=== PATIENT | male | born 1950 | race Caucasian/White ===

== ENCOUNTER 2019-10-04 21:20 | Inpatient (IN) | payer MEDICARE, BC ==
[~2019-10-04] VITALS: Ht 167.6 cm; Wt 88.9 kg
--- NOTE | 2019-10-04 21:48 | NUR ---
RECEIVED CALL FROM PT WOUND CARE DR. RAMIREZ AT [facility]. DOCTOR ADVISED TO PLEASE DO NOT REMOVE BANDAGES ON PT FOOT THEY CONTAIN MEDICAL MAGGOTS TO HEAL WOUNDS ON FEET. DR. RAMIREZ PHONE:
--- NOTE | 2019-10-04 21:48 | NUR ---
More brown in [place] - 10/04/19 at 2148 by KEVIN RECEIVED CALL FROM PT WOUND CARE DOCTOR AT [facility]
--- NOTE | 2019-10-04 21:49 | NUR ---
GILLIAN (DAUGHTER) CONTACT INFORMATION: [phone]
--- NOTE | 2019-10-04 21:55 | NUR ---
RICKY FROM HOME TO ER BED 7. AAOX2. BREATHING RAPID AND SHALLOW. NOTED 02 SAT @ 92% ON RA. BROUGHT IN FOR LEATHARGY AND WEAKNESS SATRTED TODAY. NO NUERO DEFICIT NOTED. PER DAUGHTER OVER THE PHONE, PT WAS BASELINE TALKING AND WALKING. PT HAD A RECENT AMPUTATION OF TOES, UNABLE TO ASSESS AT THIS TIME D/T WOUND MD CALLED AND GAVE INSTRUCTIONS NOT TO REMOVE OR CHANGE DRESSING. PT IS CURRENTLY ON MAGGOT TX. MD MADE AWARE. IV LINE IS ALREADY PLACED BY EMS MARINE ENGINEERING TECHNICIANS, 18G L AC. BLOOD DRAWN AND GIVEN TO GARMENT PATTERNMAKER. PT IS PLACED ON MONITOR. WILL CONTINUE TO MONITOR
[2019-10-04 21:59] LABS: BASOPHILS # (AUTO) 0.1 /CMM (0.0-0.2); BASOPHILS % (AUTO) 0.5 % (0.0-2.0); EOSINOPHILS % (AUTO) 0.3 % (0.0-6.0); HEMATOCRIT 28 % (39-51); HEMOGLOBIN 8.8 g/dL (13.5-17.5); LYMPHOCYTES # (AUTO) 0.2 /CMM (0.8-4.8); LYMPHOCYTES % (AUTO) 1.1 % (20.0-44.0); MEAN CORPUSCULAR HGB CONC 31 g/dl (31.0-36.0); MEAN CORPUSCULAR VOLUME 73 fL (80-96); MONOCYTES # (AUTO) 0.3 /CMM (0.1-1.30); MONOCYTES % (AUTO) 1.5 % (2.0-12.0); NEUTROPHILS # (AUTO) 18.1 /CMM (1.8-8.9); NEUTROPHILS % (AUTO) 96.6 % (43.0-81.0); PLATELET COUNT (AUTO) 220 /CMM (150-450); RED BLOOD CELL COUNT(AUTO) 3.88 MIL/uL (4.5-6.0); WHITE BLOOD COUNT (AUTO) 18.7 K/uL (4.3-11.0)
[2019-10-04] MEDS ORDERED: ACETAMINOPHEN ES 500 MG TABLET PO ONE (22:00)
[2019-10-04] MEDS ORDERED: IV NS 0.9% 1,000 ML BAG IV ONE ×2 (22:00→23:30)
[2019-10-04] MEDS ORDERED: ACETAMINOPHEN ES 500 MG TABLET ONE (22:01)
[2019-10-04] MEDS ORDERED: LISI40TA4 PO (22:03)
[2019-10-04] MEDS ORDERED: METF-442 PO (22:03)
[2019-10-04] MEDS ORDERED: DULA0.75 SQ (22:03)
[2019-10-04] MEDS ORDERED: INSU100V11 SQ (22:03)
[2019-10-04] MEDS ORDERED: CARV12.52 PO (22:03)
[2019-10-04] MEDS ORDERED: FURO40TA5 PO (22:03)
[2019-10-04] MEDS ORDERED: AMIO200T4 PO (22:03)
[2019-10-04] MEDS ORDERED: FURO-144 PO (22:03)
[2019-10-04] MEDS ORDERED: SIMV-46 PO (22:03)
[2019-10-04] MEDS ORDERED: AMLO5TAB9 PO (22:03)
[2019-10-04] MEDS ORDERED: RIVA10TA PO (22:03)
[2019-10-04 22:11] LABS: CALCIUM, SERUM 8.2 mg/dL (8.5-10.1); CARBON DIOXIDE 24 mmol/L (21-32); CHLORIDE 97 mmol/L (98-107); CREATININE 1.9 mg/dL (0.6-1.3); GLUCOSE 154 mg/dL (74-106); POTASSIUM 3.5 mmol/L (3.5-5.1); SODIUM SERUM 133 mmol/L (136-145); UREA NITROGEN, BLOOD 55 mg/dL (7-18)
--- NOTE | 2019-10-04 22:13 | NUR ---
URINE COLLECTED AND SENT TO LAB
[2019-10-04 22:18] LABS: ALANINE AMINOTRANSFERASE 589 U/L (12-78); ALBUMIN 2.4 g/dL (3.4-5.0); ALKALINE PHOSPHATASE 114 U/L (46-116); ASPARTATE AMINOTRANSFERASE 230 U/L (15-37); BILIRUBIN,DIRECT 0.3 mg/dL (0.0-0.2); TOTAL PROTEIN, SERUM 6.6 g/dL (6.4-8.2)
[2019-10-04 22:35] LABS: APPEARANCE,URINE Clear (CLEAR); BILIRUBIN,URINE SMALL (NEGATIVE); BLOOD, URINE Negative Ery/uL (NEGATIVE); COLOR,URINE Yellow (YELLOW); KETONES,URINE Trace (NEGATIVE); LEUKOCYTE ESTERASE ,URINE Negative (NEGATIVE); NITRITE, URINE Negative (NEGATIVE); PH,URINE 5.5 (5.0-8.0); PROTEIN,URINE Trace mg/dl (NEGATIVE); UGLUCOSE Negative (NEGATIVE); UROBILINOGEN,URINE 0.2 EU/dL (0.2)
[2019-10-04 22:37] LABS: BACTERIA,URINE Few /HPF (None Seen); RBC,URINE NONE SEEN /HPF (0-2); SQUAMOUS EPITHELIAL CELL,UR Few /HPF (None Seen); WBC,URINE NONE SEEN /HPF (0-3)
[2019-10-04 22:59] LABS: LYMPHOCYTES % (MANUAL) 1 % (16-48); MONOCYTES % (MANUAL) 1 % (0-11.0); NEUTROPHILS % (MANUAL) 98 (42-76)
[2019-10-04 23:04] LABS: CREATINE KINASE, TOTAL 112 U/L (39-308); FERRITIN 478 ng/mL (8-388)
--- NOTE | 2019-10-04 23:10 | NUR ---
REPORT GIVEN TO SCOT HOROWITZ FOR PARAG.
--- NOTE | 2019-10-04 23:21 | NUR ---
Received report from SCOT Tan.
[2019-10-04] MEDS ORDERED: VANCOMYCIN 1 GM in IV D5W 250 ML IV ONE (23:30)
[2019-10-04] MEDS ORDERED: PIPERACILLIN /TAZOBACTAM 3.375 G in IV D5W 50 ML IV ONE (23:30)
[2019-10-04] MEDS ORDERED: VANCOMYCIN 1 GM VIAL ONE (23:47)
[2019-10-04] MEDS ORDERED: PIPERACILLIN /TAZOBACTAM 3.375 G VIAL IV ONE (23:47)
--- NOTE | 2019-10-04 23:48 | NUR ---
PT TRANSPORTED TO UNIT ON GURNEY WITH EMT AND RN AT BEDSIDE S/ ACLS PROTOCOL. NAD NOTED DURINGH TRANSPORT
--- NOTE | 2019-10-04 23:50 | NUR ---
RN OPENING NOTE/ADMISSION NOTE: Pt transferred to unit via gurney accompanied by SLIP LASTER and tech. Transferred to bed, skin check done, head to toe assessment done. Pt A&Ox3, primarily Italian speaking, little Uzbek. On isolation for R/o Coivd. On 2L/min NC tolerating well. No SOB noted. On tele monitor showing a-fib. IV sites on RAC #18 and LAC#18 patent ad flushing. Dressings c/d/i. 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 Per SLIP LASTER, Dr. Johnston from [facility] called and stated to not remove bandages on pt's feet as they contain medical maggots to heal the wounds. Stated she will come by and give orders for tx. VS: T 98.0, HR 82, RR 18, O2 100%. BP 86/42. Dr. Brian Zuñiga aware pt has been admitted. Awaiting orders. Safety measures in place. Will continue to monitor.
[2019-10-05] VITALS (54 sets, daily range): BP systolic 75–166; BP diastolic 22–100
[2019-10-05] MEDS ORDERED: IV NS 0.9% 1,000 ML IV PRN (00:52)
[2019-10-05] MEDS ORDERED: ACETAMINOPHEN 325 MG TABLET PO PRN (01:00)
[2019-10-05] MEDS ORDERED: Z GUARD REMEDY 2 OZ OINT TP PRN (01:00)
[2019-10-05] MEDS ORDERED: MEROPENEM 500 MG in IV NS 0.9% 50 ML IV SCH (01:00)
[2019-10-05] MEDS ORDERED: ONDANSETRON HCL/PF 4 MG/2 ML VIAL IVP PRN (01:00)
[2019-10-05] MEDS ORDERED: ENOXAPARIN SODIUM 40 MG/0.4 ML DISP.SYRIN SQ SCH (01:00)
--- NOTE | 2019-10-05 01:10 | NUR ---
RN NOTE: Pt's BP noted at 86/42 s/p 2.5L NS bolus from the ER. Paged Dr. Brian Zuñiga and rec'd order for 500mL NS bolus. Orders noted and carried out.
[2019-10-05] MEDS ORDERED: IV NS 0.9% 500 ML IV ONE ×2 (01:30→03:30)
[2019-10-05] MEDS ORDERED: DEXTROSE 50%-WATER 50 ML DISP.SYRIN IV PRN (01:30)
[2019-10-05] MEDS ORDERED: MEROPENEM 500 MG in IV NS 0.9% 50 ML IV ONE (01:30)
[2019-10-05] MEDS ORDERED: MEROPENEM 500 MG VIAL IV ONE (01:46)
--- NOTE | 2019-10-05 03:06 | NUR ---
RN NOTE: Pt's BP s/p 500mL bolus at 79/47. Dr. Zuñiga paged and aware. Rec'd orders for another 500mL NS bolus and Midodrine 10mg PO x1. Orders noted and carried out.
[2019-10-05] MEDS ORDERED: MIDODRINE HCL (5MG) 5 MG TABLET PO ONE (03:30)
--- NOTE | 2019-10-05 04:58 | NUR ---
RN NOTE: After 500NS bolus and Midodrine, pt's BP at 77/31. Dr. Zuñiga aware, gave orders to transfer to ICU and start levophed. Charge nurse aware.
--- NOTE | 2019-10-05 05:44 | NUR ---
RN/ICU- RECEIVED PT. FROM TELE1 BY BED ACCOMPANIED BY TD D CREW PER ACLS PROTOCOL. NURSING FOCUS : HYPOTENSION R/T DIAGNOSIS WOUND INFECTION, SEPSIS. ROUTINE ICU CARE INITIATED.BP-76/45, HR-77 ATRIAL FIBRILLATION. BREATHING COMES EASY W/ O2 SUPPORT OF 2L/NC, SATS.-98%. AFEBRILE. ON CONTACT AND DROPLET PRECAUTIONS FOR R/O COVID 19.. W/ WOUNDS ON BOTH FEET INTACT W/ OCCLUSIVE DRESSING. PT. IS A FULL CODE. DENIES PAIN AT THIS MOMENT.
--- NOTE | 2019-10-05 05:51 | NUR ---
RN NOTE: Report given to Stephenie in ICU and pt transferred via ACLS protocol.
--- NOTE | 2019-10-05 05:55 | NUR ---
RN/ICU-SPOKE TO DAUGHTER BY PHONE REGARDING PT. STATUS, PT. ALSO SPOKE TO DAUGHTER BY PHONE. BOTH VERBALIZED UNDERSTANDING. EXPLAINED THE NEED FOR PICC LINE. VERBALIZED UNDERSTANDING. PT. THUS. GIVING VERBAL CONSENT. WILL GET ORDER FROM Mariangel MONTEIRO DNP.
[2019-10-05] MEDS ORDERED: NOREPINEPHRINE 4 MG/4 ML AMPUL IV ONE (06:00)
[2019-10-05] MEDS: NOREPINEPHRINE 8 MG in IV NS 0.9% 242 ML IV PRN ×2 (06:11→09:54)
--- NOTE | 2019-10-05 06:11 | NUR ---
RN/ICU- BP-83/50. LEVOPHED DRIP STARTED AT 0.1 MCG/KG/MIN. WILL TITRATE PER PROTOCOL TO KEEP SBP>90.
--- NOTE | 2019-10-05 06:45 | NUR ---
RN/ICU- SPOKE TO [facility] CARE RN REGARDING PT. WOUNDS QUENTIN. FEET AND CURRENT DRESSING AND TREATMENT FROM [facility]. WILL NOT UNWRAP CURRENT DRESSINGS AT THIS TIME. QUENTIN. FEET DRESSINGS INTACT W/ OCCLUSIVE DRESSINGS, W/ KERLIX WRAP IN PLACE. BOTH FEET KEPT ELEVATED ON PILLOWS.
[2019-10-05] MEDS: BLOOD SUGAR DIAGNOSTIC 1 EACH STRIP IN SCH ×4 (07:44→22:33)
--- NOTE | 2019-10-05 07:45 | NUR ---
ICU/RN: Pt received, pleasant, A&Ox3 with periods of confusion. Neosynephrine infusing well. Pending PICC line placement.
[2019-10-05] MEDS ORDERED: FEE PK DOSING 1 MIN EA MC ONE (07:50)
[2019-10-05] MEDS ORDERED: POTASSIUM CHLORIDE 20 MEQ TAB.PRT.SR PO SCH (08:00)
[2019-10-05 08:18] LABS: BASOPHILS # (AUTO) 0.1 /CMM (0.0-0.2); BASOPHILS % (AUTO) 0.4 % (0.0-2.0); HEMATOCRIT 31 % (39-51); HEMOGLOBIN 9.3 g/dL (13.5-17.5); LYMPHOCYTES # (AUTO) 0.7 /CMM (0.8-4.8); LYMPHOCYTES % (AUTO) 2.6 % (20.0-44.0); MEAN CORPUSCULAR HGB CONC 30 g/dl (31.0-36.0); MEAN CORPUSCULAR VOLUME 75 fL (80-96); MONOCYTES # (AUTO) 1.8 /CMM (0.1-1.30); NEUTROPHILS # (AUTO) 22.9 /CMM (1.8-8.9); PLATELET COUNT (AUTO) 258 /CMM (150-450); WHITE BLOOD COUNT (AUTO) 25.4 K/uL (4.3-11.0)
[2019-10-05 08:32] LABS: CALCIUM, SERUM 7.4 mg/dL (8.5-10.1); POTASSIUM 3.7 mmol/L (3.5-5.1)
[2019-10-05 08:48] LABS: MAGNESIUM 2.1 mg/dL (1.8-2.4)
[2019-10-05 08:55] LABS: THYROID STIMULATING HORMONE 1.869 uIU/mL (0.358-3.74)
[2019-10-05] MEDS ORDERED: FUROSEMIDE 40 MG TABLET PO SCH ×2 (09:00)
[2019-10-05] MEDS ORDERED: CARVEDILOL 12.5 MG TABLET PO SCH (09:00)
[2019-10-05] MEDS ORDERED: AMLODIPINE BESYLATE 5 MG TABLET PO SCH (09:00)
[2019-10-05] MEDS ORDERED: AMIODARONE HCL 200 MG TABLET PO SCH (09:00)
--- NOTE | 2019-10-05 09:30 | NUR ---
ICU/RN: Dr Quintero at bedside, updated on pt status.
[2019-10-05] MEDS: IV NS 0.9% 1,000 ML IV PRN ×2 (09:46→18:51)
--- NOTE | 2019-10-05 09:57 | NUR ---
COAL TRIMMER COAL TRIMMER SPOKE TO DR RAMIREZ REGARDING WOUND CARE TREATMENT. PER DR RAMIREZ, DR ZHANG WILL SEE THIS PT TODAY AND WILL PLACE TREATMENT ORDERS ONCE SHE SEES THIS PATIENT. FOR NOW, NURSING TO LEAVE CURRENTLY DRESSINGS IN PLACE, DR ZHANG TO CHANGE DRESSINGS. ALL DISCUSSED WITH PRIMARY NURSE.
[2019-10-05] MEDS: INSULIN REGULAR, HUMAN 100 UNIT/ML 3 ML VIAL SQ PRN ×3 (11:45→22:36)
--- NOTE | 2019-10-05 13:00 | NUR ---
ICU/RN:S/P Debridement Pt tolerated medical maggot removal and L foot debridement performed by Dr Reyes. Consents were obtained beforehand and pt verbalized understanding of procedure. Pt tolerated procedure well, no s/s bleeding noted, dressing C/D/I. Wounds photographed by MD and placed in chart.
[2019-10-05] MEDS: MEROPENEM 1 G in IV NS 0.9% 100 ML IV SCH (13:25)
[2019-10-05] MEDS: NOREPINEPHRINE 32 MG in IV NS 0.9% 218 ML IV PRN (13:28)
[2019-10-05] MEDS ORDERED: CELLULOSE,OXIDIZED 1 PKT EACH MC STA (14:10)
--- NOTE | 2019-10-05 14:30 | NUR ---
ICU/RN: S/P PICC Line insertion. CXR pending. Pt on xarelto and has bleeding at puncture site. Pressure dressing applied, continuous oozing noted. Dr Gallagher notified with orders for Surgicel. Central line care rendered. Dr Gallagher also notified that pt is PUI for covid, is not on any treatments, awaiting ID consult. made aware of poor urine output.
[2019-10-05] MEDS ORDERED: RIVAROXABAN 10 MG TABLET PO SCH (17:00)
--- NOTE | 2019-10-05 17:00 | NUR ---
ICU/RN: Called Rx regarding 1700 Xarelto dose, awaiting delivery.
--- NOTE | 2019-10-05 17:45 | NUR ---
ICU/RN:ID Consult Yadira San NP rounds. Updated on pt status, labs and cultures reviewed. Patient with gram positive cocci, currently on vancomycin.
[2019-10-05] MEDS ORDERED: SIMVASTATIN 20 MG TABLET PO SCH (18:00)
--- NOTE | 2019-10-05 18:00 | NUR ---
ICU/RN: Called Rx regarding Xarelto dose, spoke with Brian, Rx; awaiting delivery.
--- NOTE | 2019-10-05 19:21 | NUR ---
ICU/RN: Bedside report given to oncoming RN. Still awaiting Xarelto delivery.
--- NOTE | 2019-10-05 19:40 | NUR ---
RN OPENING NOTE, Pt A&Ox3, breathing even and unlabored, no sob/acute distress noted at this time, at RA, afib in tele monitor with hr 80s-90s at this time, On isolation for R/o Covid. IV sites LAC#18, and s/p BARRERA picc line today, both patent and intact, all need provided, sbp in 90s at this time, on Levophed 6mcg/kg/min and 0.9% NS @ 125ml/hr, no infiltration noted, slightly bleeding at picc line site noted, reinforced dressing, bed locked and low position, 2x s/r of bed up, amy light w/i reach, will continue to monitor closely.
--- NOTE | 2019-10-05 20:35 | NUR ---
RN NOTES, INFORMED CHLOE KRAUSE THAT THERE'S AN ORDER FOR XARELTO 2OMG FOR PATIENT SINCE 5PM AND PATIENT SLIGHTLY BLEEDING FROM PICC LINE SITE SINCE THEY INSERTED TODAY, PER CHLOE GIVE MEDICATION IF IS NOT PROFUSE BLEEDING, NOTED AND CARRIED OUT.
[2019-10-05] MEDS: VANCOMYCIN 1 GM in IV D5W 250 ML IV SCH (22:36)
[2019-10-06] VITALS (53 sets, daily range): BP systolic 89–142; BP diastolic 39–99
[2019-10-06] MEDS: NOREPINEPHRINE 32 MG in IV NS 0.9% 218 ML IV PRN (00:13)
--- NOTE | 2019-10-06 00:20 | NUR ---
RN NOTES, INFORMED CHLOE FUNERAL SERVICE LICENSEE THAT PATIENT IS COMPLAINING OF SEVERE PAIN IN BOTH LEGS, PATIENT S/P DEBRIDEMENT TODAY, AND SHE REPLIED WITH NEW ORDER FOR MORPHINE, NOTED AND CARRIED OUT, WILL ADMINISTER ORDERED,
[2019-10-06] MEDS: MORPHINE SULFATE INJ 2 MG/ML DISP.SYRIN IV PRN ×3 (00:25→15:24)
[2019-10-06] MEDS: MEROPENEM 1 G in IV NS 0.9% 100 ML IV SCH ×2 (01:56→13:58)
[2019-10-06 04:47] LABS: BASOPHILS # (AUTO) 0.1 /CMM (0.0-0.2); BASOPHILS % (AUTO) 0.2 % (0.0-2.0); EOSINOPHILS % (AUTO) 0.2 % (0.0-6.0); HEMATOCRIT 28 % (39-51); HEMOGLOBIN 8.8 g/dL (13.5-17.5); LYMPHOCYTES # (AUTO) 0.9 /CMM (0.8-4.8); LYMPHOCYTES % (AUTO) 3.8 % (20.0-44.0); MEAN CORPUSCULAR HGB CONC 31 g/dl (31.0-36.0); MEAN CORPUSCULAR VOLUME 73 fL (80-96); MONOCYTES # (AUTO) 1.5 /CMM (0.1-1.30); NEUTROPHILS # (AUTO) 22.1 /CMM (1.8-8.9); NEUTROPHILS % (AUTO) 89.8 % (43.0-81.0); PLATELET COUNT (AUTO) 267 /CMM (150-450); RED BLOOD CELL COUNT(AUTO) 3.88 MIL/uL (4.5-6.0); WHITE BLOOD COUNT (AUTO) 24.7 K/uL (4.3-11.0)
[2019-10-06 04:49] LABS: APPEARANCE,URINE CLEAR (CLEAR); BILIRUBIN,URINE SMALL (NEGATIVE); BLOOD, URINE NEGATIVE Ery/uL (NEGATIVE); COLOR,URINE YELLOW (YELLOW); KETONES,URINE NEGATIVE (NEGATIVE); LEUKOCYTE ESTERASE ,URINE NEGATIVE (NEGATIVE); NITRITE, URINE NEGATIVE (NEGATIVE); PH,URINE 5.5 (5.0-8.0); PROTEIN,URINE TRACE mg/dl (NEGATIVE); UGLUCOSE NEGATIVE (NEGATIVE)
[2019-10-06 04:58] LABS: BACTERIA,URINE Few /HPF (None Seen); RBC,URINE 0-2 /HPF (0-2); SQUAMOUS EPITHELIAL CELL,UR Few /HPF (None Seen)
[2019-10-06 05:00] LABS: CREATININE, URINE 129.2 MG/DL (30.0-125.0); URINE TOTAL PROTEIN 69.1 mg/dL (0-11.9)
[2019-10-06 05:03] LABS: ALBUMIN 2.1 g/dL (3.4-5.0); BILIRUBIN,TOTAL 0.9 mg/dL (0.2-1.0); CALCIUM, SERUM 7.8 mg/dL (8.5-10.1); CREATININE 2.1 mg/dL (0.6-1.3); PHOSPHORUS 3.3 mg/dL (2.5-4.9); POTASSIUM 3.6 mmol/L (3.5-5.1); THYROID STIMULATING HORMONE 1.985 uIU/mL (0.358-3.74)
[2019-10-06 05:26] LABS: EOSINOPHIL,URINE None Seen
[2019-10-06] MEDS: IV NS 0.9% 1,000 ML IV PRN (05:37)
--- NOTE | 2019-10-06 06:40 | NUR ---
RN OPENING NOTE, Patient in bed breathing even and unlabored, no sob/acute distress noted at this time, at RA, continue afib in tele monitor with hr 90s at this time, On isolation for R/o Covid, no result yet, IV sites LAC#18, and s/p BARRERA picc line, both patent and intact, all need provided, on Levophed titrate down during night to 0.3mcg/kg/min and 0.9% NS @ 125ml/hr, no infiltration noted, bed locked and low position, 2x s/r of bed up, amy light w/i reach, will endorse continuity of care to oncoming nurse.
[2019-10-06 06:43] LABS: FERRITIN 561 ng/mL (8-388)
--- NOTE | 2019-10-06 07:30 | NUR ---
PURCHASING ADMINISTRATOR INITIAL NOTE RECEIVED PATIENT AWAKE, A/OX3, ABLE TO MAKE NEEDS KNOWN. DENIES SOB. ON ROOM AIR. C/O LEFT FOOT PAIN WITH MOVEMENT 01/23. NO DISTRESS NOTED. ON TELE MONITOR AFIB CONTROLLED. BARRERA PICC LINE DRESSING PATENT AND INTACT, IVF RUNNING. TURNED LEVO OFF. IOSLATION PRECAUTIONS OBSERVED. WILL CONTINUE TO MONITOR.
[2019-10-06] MEDS: BLOOD SUGAR DIAGNOSTIC 1 EACH STRIP IN SCH ×4 (08:10→21:42)
[2019-10-06] MEDS: INSULIN REGULAR, HUMAN 100 UNIT/ML 3 ML VIAL SQ PRN ×4 (08:12→21:44)
[2019-10-06] MEDS ORDERED: POTASSIUM CHLORIDE 20 MEQ TAB.PRT.SR PO SCH ×2 (09:00→12:11)
[2019-10-06] MEDS: HYDROCORTISONE SOD SUCCINATE 100 MG/2 ML VIAL IV SCH ×3 (12:20→17:33)
--- NOTE | 2019-10-06 13:00 | NUR ---
SUPPLIES PACKER NOTE SEEN AND EXAMINED BY DR SCHROEDER WITH ORDERS TO TRANSFER PATIENT TO TELEMETRY, CHARGE NURSE AWARE.
[2019-10-06] MEDS: SOD FERRIC GLUC 125 MG in IV NS 0.9% 100 ML IV SCH (14:17)
[2019-10-06] MEDS ORDERED: RIVAROXABAN 10 MG TABLET PO SCH (17:00)
--- NOTE | 2019-10-06 17:00 | NUR ---
[facility] TECHNICIAN NOTE RECEIVED CALL FROM [facility], WITH TELEPHONE ORDERS FOR DOPPLER ARTERIAL OF BILATERAL LEGS FOR BIPASS GRAFT SURVEILLANCE. NOTED AND CARRIED OUT.
--- NOTE | 2019-10-06 17:20 | NUR ---
NEWS PRODUCTION SUPERVISOR NOTE BEDSIDE REPORT GIVEN TO JACI FROM 3W, PATIENT TO GO TO ROOM 314-2, PATIENT TAKE VIA BED. PATIENT TAKEN VIA BED. Addendum: 10/06/19 at 1743 by NICOLE AGUILAR RN WRONG ROOM. PATIENT TO ROOM 313-1
--- NOTE | 2019-10-06 17:25 | NUR ---
WRONG ADDRESS CLERK NOTES MRSA NARES RESULTED POSITIVE RELAYED TO DR KELY ALDRIDGE WITH ORDERS FOR BACTROBAN, ORDERS CLARIFIED AND READ BACK, NOTED AND CARRIED OUT.
--- NOTE | 2019-10-06 17:25 | NUR ---
MANAGER ENGLISH NOTES RECEIVED PATIENT FROM ICU REPORT GIVEN BY [facility] RN. PATIENT ALERT ORIENTED X 3. NO ACUTE DISTRESS NOTED. DENIED PAIN AT THIS TIME. VITAL SIGNS STABLE. PLACED ON GOGGLES ASSEMBLER SINUS RHYTHM. SAFETY MEASURES IN PLACE, CALL LIGHT WITHIN REACH. WILL CONTINUE TO MONITOR ACCORDINGLY.
--- NOTE | 2019-10-06 18:05 | NUR ---
director nicu note spoke with daughter Agnes and updates given as well as room change.
--- NOTE | 2019-10-06 19:00 | NUR ---
COMIC BOOK WRITER NOTES PATIENT IN BED ALERT ORIENTED X 3. NO ACUTE DISTRESS NOTED. NO ACUTE DISTRESS NOTED . BREATHING UNLABORED. NO SOB NOTED. SAFETY MEASURES IN PLACE, CALL LIGHT WITHIN REACH. WILL ENDORSE TO NIGHT NURSE FOR CONTINUITY OF CARE.
--- NOTE | 2019-10-06 19:30 | NUR ---
LABORER PRESTRESSED CONCRETE OPENING NOTES RECEIVED PATIENT IN BED, ALERT AND ORIENTED X 3. BREATHING REGULAR AND UNLABORED ON ROOM AIR. RIGHT UPPER ARM PICC LINE INTACT AND PATENT, FLUSHING WELL WITH NO BLEEDING OR S/S OF INFILTRATION NOTED. ON LICSW WITH ATRIAL FIBRILLATION AT 72bpm. DENIES SUICIDAL IDEATION. NO COMPLAINTS OF PAIN/DISCOMFORT REPORTED AT THIS TIME. BED LOW AND LOCKED ON SEMI FOWLERS POSITION. CALL LIGHT IN REACH. WILL CONTINUE TO MONITOR.
--- NOTE | 2019-10-06 20:54 | NUR ---
PRELIMINARY ECHO FINDINGS SHOWED EF 25-30%~. RN WAS ADVISED OF INITIAL RESULTS.
[2019-10-06] MEDS: MUPIROCIN OINT 2% 22 GM TUBE SCH (21:11)
--- NOTE | 2019-10-06 22:00 | NUR ---
DIELECTRIC PRESS OPERATOR NOTES BS 276mg/dl, 6UNITS REGULAR INSULIN GIVEN SQ. SNACKS PROVIDED ON BEDSIDE. WILL CONTINUE TO MONITOR.
[2019-10-06] MEDS: VANCOMYCIN 1 GM in IV D5W 250 ML IV SCH (23:08)
[2019-10-07] VITALS: BP 109/60
[2019-10-07] MEDS: MEROPENEM 1 G in IV NS 0.9% 100 ML IV SCH ×2 (01:03→13:20)
[2019-10-07] MEDS: MORPHINE SULFATE INJ 2 MG/ML DISP.SYRIN IV PRN ×2 (03:52→21:17)
[2019-10-07 04:00] VITALS: BP 105/60
--- NOTE | 2019-10-07 04:00 | NUR ---
LUGGAGE LINER NOTES COMPLAINED OF 8/10 LEFT FOOT PAIN, MORPHINE 2MG GIVEN VIA IV PUSH. NON-PHARMACOLOGICAL INTERVENTIONS PROVIDED. VITAL SIGNS WNL. WILL CONTINUE TO MONITOR.
[2019-10-07] MEDS: BLOOD SUGAR DIAGNOSTIC 1 EACH STRIP IN SCH ×4 (06:36→21:05)
[2019-10-07] MEDS: INSULIN REGULAR, HUMAN 100 UNIT/ML 3 ML VIAL SQ PRN ×4 (06:38→21:16)
[2019-10-07 06:44] LABS: BASOPHILS # (AUTO) 0.1 /CMM (0.0-0.2); BASOPHILS % (AUTO) 0.2 % (0.0-2.0); HEMATOCRIT 32 % (39-51); HEMOGLOBIN 9.9 g/dL (13.5-17.5); LYMPHOCYTES # (AUTO) 0.9 /CMM (0.8-4.8); LYMPHOCYTES % (AUTO) 2.8 % (20.0-44.0); MEAN CORPUSCULAR HGB CONC 31 g/dl (31.0-36.0); MEAN CORPUSCULAR VOLUME 72 fL (80-96); MONOCYTES % (AUTO) 3.1 % (2.0-12.0); NEUTROPHILS % (AUTO) 93.9 % (43.0-81.0); PLATELET COUNT (AUTO) 298 /CMM (150-450); RED BLOOD CELL COUNT(AUTO) 4.42 MIL/uL (4.5-6.0)
[2019-10-07 06:52] LABS: WHITE BLOOD COUNT (AUTO) 33.1 K/uL (4.3-11.0)
--- NOTE | 2019-10-07 06:55 | NUR ---
MACHINE JOINER CEMENTER CLOSING NOTES PATIENT IN BED, ALERT AND ORIENTED X 3. BREATHING REGULAR AND UNLABORED ON ROOM AIR. RIGHT UPPER ARM PICC LINE PATENT AND FLUSHING WELL. MAINTAINED ON ADMINISTRATIVE ACCOUNTANT WITH ATRIAL FIBRILLATION AT 78bpm. WOUND TREATMENTS PROVIDED. NO COMPLAINTS OF PAIN/DISCOMFORT REPORTED AT THIS TIME. BED LOW AND LOCKED ON SEMI FOWLERS POSITION. CALL LIGHT IN REACH. WILL ENDORSE TO MORNING SHIFT FOR PARAG.
[2019-10-07 07:07] LABS: PTH, INTACT 59 pg/mL (15-65)
--- NOTE | 2019-10-07 07:30 | NUR ---
MS/RN Opening note Received patient in bed, AO x 4, compliance and able to responds all stimuli. Noticed WBC CH/33.1 Dr. Elliott rivera. pt does no c/o pain or any discomfort, skin is warm to touch, kept clean/dry, intact IV site. Respiratory even and unlabored in room air. Keep lower position of the bed with locked wheel fro safety. Call light within reach. Will continue to monitor.
[2019-10-07 07:35] LABS: CALCIUM, SERUM 7.9 mg/dL (8.5-10.1); CREATININE 1.6 mg/dL (0.6-1.3); MAGNESIUM 2.2 mg/dL (1.8-2.4); PHOSPHORUS 2.8 mg/dL (2.5-4.9)
[2019-10-07 08:00] VITALS: BP 108/51
[2019-10-07 08:25] LABS: BAND % (MANUAL) 6 % (0.0-5.0); LYMPHOCYTES % (MANUAL) 3 % (16-48); MONOCYTES % (MANUAL) 4 % (0-11.0); NEUTROPHILS % (MANUAL) 87 (42-76)
[2019-10-07 09:06] LABS: *SPE A/G RATIO 0.7 (0.7-1.7); *SPE ALBUMIN 2.2 g/dL (2.9-4.4); *SPE ALPHA-1-GLOBULIN 0.4 g/dL (0.0-0.4); *SPE BETA GLOBULIN 0.7 g/dL (0.7-1.3); *SPE GLOBULIN, TOTAL 3.1 g/dL (2.2-3.9); *SPE M-SPIKE Not Observed g/dL (Not Observed); *SPEGAMMA GLOBULIN 0.9 g/dL (0.4-1.8)
[2019-10-07] MEDS: MUPIROCIN OINT 2% 22 GM TUBE SCH ×2 (09:13→21:05)
[2019-10-07] MEDS: HYDROCORTISONE SOD SUCCINATE 100 MG/2 ML VIAL IV SCH ×3 (09:13→16:50)
[2019-10-07] MEDS: SOD FERRIC GLUC 125 MG in IV NS 0.9% 100 ML IV SCH (15:41)
[2019-10-07 16:00] VITALS: BP 113/66
[2019-10-07] MEDS: VANCOMYCIN 1 GM in IV D5W 250 ML IV SCH (16:44)
[2019-10-07] MEDS: RIVAROXABAN 15 MG TABLET PO SCH (16:46)
--- NOTE | 2019-10-07 17:00 | NUR ---
Patient noticed gram positive cocci in clusters from blood Cx, informed Dr. Gallagher.
--- NOTE | 2019-10-07 18:30 | NUR ---
MS/RN closing note Patient in bed comfortably, does no appears pain or discomfort, no s/s of adverse reaction or complication observed related diagnosis. Respiratory even and unlabored with room air. Skin is warm to touch, kept clean/dry, intact piccline site. Call light within reach, all needs met. Will endorse shift manager.
[2019-10-07 20:00] VITALS: BP 112/74
[2019-10-07 20:53] VITALS: BP 112/74
--- NOTE | 2019-10-07 21:15 | NUR ---
RN NOTES COMPLAINED OF LEFT FOOT PAIN- MORPHINE 2MG IV GIVEN ORDERED, V/S STABLE
[2019-10-08] VITALS: BP 114/68
[2019-10-08] MEDS: MEROPENEM 1 G in IV NS 0.9% 100 ML IV SCH ×2 (02:12→15:19)
[2019-10-08] MEDS: MORPHINE SULFATE INJ 2 MG/ML DISP.SYRIN IV PRN (04:23)
--- NOTE | 2019-10-08 04:23 | NUR ---
RN NOTES COMPLAINED OF LEFT FOOT PAIN- MORPHINE 2 MG IV GIVEN ORDERED, V/S STABLE
[2019-10-08 04:27] VITALS: BP 114/70
[2019-10-08] MEDS: BLOOD SUGAR DIAGNOSTIC 1 EACH STRIP IN SCH ×4 (06:22→21:41)
[2019-10-08] MEDS: INSULIN REGULAR, HUMAN 100 UNIT/ML 3 ML VIAL SQ PRN ×4 (06:25→21:50)
--- NOTE | 2019-10-08 07:00 | NUR ---
RN NOPTES MORNING CARE RENDRED, NOT INDISTRESS, PT. NEEDS ATTENDED
[2019-10-08 07:22] LABS: BASOPHILS # (AUTO) 0.1 /CMM (0.0-0.2); BASOPHILS % (AUTO) 0.5 % (0.0-2.0); EOSINOPHILS % (AUTO) 0.1 % (0.0-6.0); HEMATOCRIT 32 % (39-51); HEMOGLOBIN 9.9 g/dL (13.5-17.5); LYMPHOCYTES # (AUTO) 0.7 /CMM (0.8-4.8); LYMPHOCYTES % (AUTO) 2.3 % (20.0-44.0); MEAN CORPUSCULAR HGB CONC 31 g/dl (31.0-36.0); MEAN CORPUSCULAR VOLUME 72 fL (80-96); MONOCYTES # (AUTO) 0.7 /CMM (0.1-1.30); MONOCYTES % (AUTO) 2.2 % (2.0-12.0); NEUTROPHILS # (AUTO) 29.4 /CMM (1.8-8.9); NEUTROPHILS % (AUTO) 94.9 % (43.0-81.0); PLATELET COUNT (AUTO) 383 /CMM (150-450); RED BLOOD CELL COUNT(AUTO) 4.45 MIL/uL (4.5-6.0)
--- NOTE | 2019-10-08 07:30 | NUR ---
Tele/RN Opening note Received patient in bed, AO x 3-4, able to responds all stimuli. Pt does no c/o pain or any discomfort at this time, skin is warm to touch, kept clean/dry, intact picc line site. Respiratory even and unlabored in room air. Keep lower position of the bed with locked wheel and elevated. Call light within reach. Will continue to monitor.
[2019-10-08 07:58] LABS: CALCIUM, SERUM 8.6 mg/dL (8.5-10.1); CREATININE 1.5 mg/dL (0.6-1.3); MAGNESIUM 2.2 mg/dL (1.8-2.4); PHOSPHORUS 2.5 mg/dL (2.5-4.9); POTASSIUM 3.8 mmol/L (3.5-5.1)
[2019-10-08 08:00] VITALS: BP 124/57
--- NOTE | 2019-10-08 08:20 | NUR ---
Patient noticed WBC CH:31.0 trending down from previous. Dr. Alejandra made aware.
[2019-10-08 08:36] LABS: LYMPHOCYTES % (MANUAL) 3 % (16-48); MONOCYTES % (MANUAL) 2 % (0-11.0); NEUTROPHILS % (MANUAL) 95 (42-76)
[2019-10-08] MEDS: MUPIROCIN OINT 2% 22 GM TUBE SCH ×2 (09:10→21:41)
[2019-10-08] MEDS: HYDROCORTISONE SOD SUCCINATE 100 MG/2 ML VIAL IV SCH ×3 (09:10→17:55)
[2019-10-08] MEDS: VANCOMYCIN 1 GM in IV D5W 250 ML IV SCH (10:22)
[2019-10-08] MEDS: SOD FERRIC GLUC 125 MG in IV NS 0.9% 100 ML IV SCH (15:19)
[2019-10-08 16:00] VITALS: BP 117/75
[2019-10-08] MEDS: RIVAROXABAN 15 MG TABLET PO SCH (17:53)
--- NOTE | 2019-10-08 18:30 | NUR ---
Tele/RN Closing note Patient in bed comfortably, dose no complain of pain or any discomfort. Skin is warm to touch, kept clean/dry, intact picc line site. Continue to IV ABT no s/s of adverse reaction observed. Respiratory even and unlabored, keep lower portion if the bed with locked wheel. Call light within reach, will endorse third shift lieutenant.
[2019-10-08 20:00] VITALS: BP 115/69
[2019-10-09 00:10] VITALS: BP 125/75
[2019-10-09] MEDS: MORPHINE SULFATE INJ 2 MG/ML DISP.SYRIN IV PRN (01:18)
[2019-10-09] MEDS: MEROPENEM 1 G in IV NS 0.9% 100 ML IV SCH ×2 (01:44→14:39)
[2019-10-09 04:00] VITALS: BP 125/75
[2019-10-09] MEDS: VANCOMYCIN 1 GM in IV D5W 250 ML IV SCH ×2 (04:03→17:31)
[2019-10-09] MEDS: INSULIN REGULAR, HUMAN 100 UNIT/ML 3 ML VIAL SQ PRN ×3 (06:27→17:14)
--- NOTE | 2019-10-09 06:30 | NUR ---
RN NOTES PATIENT ALERT AND ORIENTED X3, WITH FORGETFULNESS, ROOM AIR, PAIN TO LEFT FOOT, S/P LEFT PARTIAL FOOT AMPUTATION, NWB TO LEFT LEG, PICC LINE, MERREM AND VANCOMYCIN IV, FOR DISCHARGE PLANNING TO HOME, FAMILY REQUESTING WHEEL CHAIR, DELI CUTTER SLICER AWARE.
[2019-10-09] MEDS: BLOOD SUGAR DIAGNOSTIC 1 EACH STRIP IN SCH ×4 (06:37→21:35)
[2019-10-09 07:55] LABS: BASOPHILS # (AUTO) 0.1 /CMM (0.0-0.2); BASOPHILS % (AUTO) 0.3 % (0.0-2.0); HEMATOCRIT 30 % (39-51); HEMOGLOBIN 9.1 g/dL (13.5-17.5); LYMPHOCYTES # (AUTO) 0.7 /CMM (0.8-4.8); LYMPHOCYTES % (AUTO) 3.4 % (20.0-44.0); MEAN CORPUSCULAR HGB CONC 31 g/dl (31.0-36.0); MEAN CORPUSCULAR VOLUME 72 fL (80-96); MONOCYTES # (AUTO) 1.2 /CMM (0.1-1.30); MONOCYTES % (AUTO) 5.8 % (2.0-12.0); NEUTROPHILS % (AUTO) 90.5 % (43.0-81.0); PLATELET COUNT (AUTO) 382 /CMM (150-450); RED BLOOD CELL COUNT(AUTO) 4.08 MIL/uL (4.5-6.0); WHITE BLOOD COUNT (AUTO) 20.9 K/uL (4.3-11.0)
[2019-10-09 08:00] VITALS: BP 125/68
[2019-10-09 08:13] LABS: CALCIUM, SERUM 8.2 mg/dL (8.5-10.1); CREATININE 1.1 mg/dL (0.6-1.3); POTASSIUM 3.5 mmol/L (3.5-5.1)
[2019-10-09] MEDS: HYDROCORTISONE SOD SUCCINATE 100 MG/2 ML VIAL IV SCH ×3 (08:35→17:07)
[2019-10-09] MEDS: MUPIROCIN OINT 2% 22 GM TUBE SCH ×2 (08:39→21:32)
[2019-10-09 10:18] LABS: LYMPHOCYTES % (MANUAL) 5 % (16-48); MONOCYTES % (MANUAL) 5 % (0-11.0); MYELOCYTES % 1 % (0-0); NEUTROPHILS % (MANUAL) 89 (42-76)
[2019-10-09 10:38] LABS: BILIRUBIN,DIRECT 0.2 mg/dL (0.0-0.2); BILIRUBIN,TOTAL 0.8 mg/dL (0.2-1.0)
--- NOTE | 2019-10-09 12:00 | NUR ---
INSTALLATION MANAGER NOTES-- PT STARTED TO REFUSE CARE. PT STATED HE WANTS TO LEAVE AND GO AMA. CALLED DTAlisson PUCKETT AND SPOKE WITH PT. PT AGREED TO STAY ONE MORE DAY. NILESH AWARE OF SITUATION AND WILL CALL RANDELL PUCKETT.
[2019-10-09] MEDS ORDERED: LORAZEPAM 0.5 MG TABLET PO PRN (13:00)
[2019-10-09] MEDS: SOD FERRIC GLUC 125 MG in IV NS 0.9% 100 ML IV SCH (13:51)
[2019-10-09 16:00] VITALS: BP 130/85
--- NOTE | 2019-10-09 16:18 | NUR ---
PRE PRESS OPERATOR NOTES-- ADMINISTERED ATIVAN PRIOR TO CT SCAN D/T PT STATING HE IS CLAUSTROPHOBIC,. RECEIVED A PHONE CALL FROM DTR LAVERN SAYING THAT SHE HAD JUST SPOKEN WITH PT AND PT DOES NOT WANT TO DO CT SCAN. NILESH JAIMES MADE AWARE.
[2019-10-09] MEDS: RIVAROXABAN 15 MG TABLET PO SCH (17:13)
--- NOTE | 2019-10-09 18:19 | NUR ---
UTILITY TRACTOR OPERATOR END OF SHIFT SUMMARY PT IS A/O X3, MONITORED, CONTROLLED AFIB. HOWEVER, PT DECIDED TO TAKE OFF TELE LEADS AND STATED "I DONT WANT THEM, I WILL PUT THEM WHEN I SLEEP." NILESH MADE AWARE. RESPIRATIONS ARE EVEN AND UNLABORED, NOT IN ANY ACUTE DISTRESS NOTED. PT DENIES ANY PAIN DURING SHIFT. ABDOMEN IS SOFT AND NONDISTENDED, BOWEL SOUNDS ARE PRESENT IN ALL 4 QUADRANTS UPON AUSCULTATION. +FLATUS, NO BM DURING SHIFT. DENIES ANY BLADDER DISCOMFORT. TOLERATING PO, NO C/O N/V. PICC LINE TO BARRERA INTACT W/ GOOD BLOOD RETURN. NO INFILTRATION NOTED. DRESSING CHANGED DURING SHIFT. ACCUCHECKS ACHS. NEEDS MET AND RENDERED. SAFETY MEASURES ARE IN PLACE. CALL LIGHT IS LEFT WITHIN REACH. WILL MONITOR AND CONTINUE POC/
--- NOTE | 2019-10-09 19:30 | NUR ---
ASPHALT HEATER OPERATOR NOTES RECEIVED ON BED A/O X2-3,APPEARS CONFUSED AFTER MEDICATED WITH ATIVAN BY DAY NURSE,REALITY ORIENTATION EMPHASIZED.CLAIMED HE'S GOING HOME AND HE WEAR HIS REGULAR CLOTHES.PATIENT WAS ADVISED THAT HE'S GOING HOME TOMORROW.WITH RIGHT UPPER ARM PICC LINE THREE PORTS FOR MEDS,INTACT AND PATENT.S/P LEFT FOOT PARTIAL AMPUTATION,DRESSING INTACT AND DRY,NON WEIGHT BEARING ON LEFT FOOT.NOTED REDNESS ON RIGHT LOWER LEG,ENCOURAGED TO ELEVATE ON PILLOWS.CALL LIGHT IN REACH,NEEDS ANTICIPATED.
--- NOTE | 2019-10-09 19:40 | NUR ---
DERMATOLOGIST NOTES PATIENT HAS TENDENCY TO GET UP,BED ALARM TRIGGERED,ADVISED THAT HE WAS GIVEN ATIVAN EARLIER,THAT HE MIGHT FALL BUT PATIENT REFUSED TO HAVE BED ALARM ON.SAYS ITS TOO NOISY AND BOTHER HIM.
[2019-10-09 20:00] VITALS: BP 110/81
--- NOTE | 2019-10-09 20:30 | NUR ---
INTERNATIONAL GUEST COORDINATOR NOTES SEEN BY SCOT KIM,PATIENT STAND UP, THAT HE WANTS TO CHARGE HIS CELL PHONE,OUT OF BALANCE HE FELL ON THE FLOOR BACKWARDS.PATIENT DENIES HEATING HIS HEAD ON THE FLOOR,HE WAS PUT BACK TO BED ASSISTED BY CAMILO AND JULIO ELLISON.DENIES PAIN ON HIS LOWER BACK,CLAIMED " I'M OKAY ",NOTED SLIGHT BLEEDING ON RIGHT BIG TOE.CLEANSE WITH NS AND COVERED WITH DRY DRESSING.BED ALARM TRIGGERED.FREQUENT ROUNDING PER PROTOCOL.WILL CONTINUE TO MONITOR .
--- NOTE | 2019-10-09 20:40 | NUR ---
BAG CUTTER NOTES PATIENT REFUSED VITAL SIGNS POST FALL
--- NOTE | 2019-10-09 21:45 | NUR ---
INK PRINTER NOTES SPOKE TO FAMILY MEMBER,MADE AWARE OF PATIENT FALL AND SAID NOT TO GIVE ANYMORE ATIVAN BECAUSE PATIENT GETS CONFUSED,NOTED.
--- NOTE | 2019-10-09 22:00 | NUR ---
FINISHED YARN EXAMINER NOTES REFUSED BLOOD SUGAR CHECK THIS TIME AND BACTROBAN OINTMENT FOR HIS NOSE,RE-MRSA NARES
--- NOTE | 2019-10-09 22:20 | NUR ---
DANCING INSTRUCTOR NOTES PAGE HOSPITALIST FRINGING MACHINE OPERATOR JIMI GILLIAM REGARDING PATIENT FALL,AWAITING TO CALL BACK
--- NOTE | 2019-10-09 22:26 | NUR ---
SPEECH AND LANGUAGE SPECIALIST NOTES HOSPITALIST JIMI MADE AWARE OF THE FALL,NO FURTHER ORDERS
--- NOTE | 2019-10-09 23:00 | NUR ---
TOYS AND GAMES HAND FINISHER NOTES NURSING WHEEL INSTALLER MADE AWARE OF FALL BY CHARGE NURSE ARTEAGA
[2019-10-10] MEDS: MEROPENEM 1 G in IV NS 0.9% 100 ML IV SCH (02:02)
[2019-10-10] MEDS: VANCOMYCIN 1 GM in IV D5W 250 ML IV SCH (05:32)
[2019-10-10 06:28] LABS: BASOPHILS % (AUTO) 0.1 % (0.0-2.0); EOSINOPHILS % (AUTO) 0.1 % (0.0-6.0); HEMATOCRIT 31 % (39-51); HEMOGLOBIN 9.6 g/dL (13.5-17.5); LYMPHOCYTES % (AUTO) 5.5 % (20.0-44.0); MEAN CORPUSCULAR HGB CONC 31 g/dl (31.0-36.0); MEAN CORPUSCULAR VOLUME 73 fL (80-96); MONOCYTES # (AUTO) 1.2 /CMM (0.1-1.30); MONOCYTES % (AUTO) 6.7 % (2.0-12.0); NEUTROPHILS # (AUTO) 16.2 /CMM (1.8-8.9); NEUTROPHILS % (AUTO) 87.6 % (43.0-81.0); PLATELET COUNT (AUTO) 380 /CMM (150-450); RED BLOOD CELL COUNT(AUTO) 4.23 MIL/uL (4.5-6.0); WHITE BLOOD COUNT (AUTO) 18.5 K/uL (4.3-11.0)
[2019-10-10 06:31] LABS: CALCIUM, SERUM 8.6 mg/dL (8.5-10.1); MAGNESIUM 1.9 mg/dL (1.8-2.4); PHOSPHORUS 2.5 mg/dL (2.5-4.9); POTASSIUM 3.6 mmol/L (3.5-5.1)
[2019-10-10 06:37] LABS: THYROID STIMULATING HORMONE 1.993 uIU/mL (0.358-3.74)
--- NOTE | 2019-10-10 06:48 | NUR ---
SUPERVISOR TELEPHONE INFORMATION NOTES SLEPT WITH INTERVAL.PATIENT EASILY GETS AGITATED,THREATENING WORDS NOTED.ALL DUE IV MEDS ADMINISTERED.PATIENT WANTS TO GO HOME TODAY.DRESSING TO LEFT FOOT INTACT AND DRY.IN NO ACUTE DISTRESS.WILL ENDORSE TO DAY NURSE FOR PARAG.
--- NOTE | 2019-10-10 07:20 | NUR ---
CIRCUIT COURT CLERK OPENING NOTES RECEIVED PT IN BED, AWAKE, A/O X3-4. PT TOLERATING RA, WITH NO ACUTE RESPIRATORY DISTRESS NOTED. PT DENIES ANY CONCERNS OR QUESTIONS AT THIS TIME. PT DENIES ANY PAIN OR DISCOMFORT. PT CONCERNED OF GOING HOME TODAY. PT REFUSED TELEMONITORING, BLOOD SUGAR CHECK, AND BED ALARM. BARRERA PICC LINE NOTED, FLUSHED WITH NS, INTACT AND OPERATIONAL. PT KEPT COMFORTABLE IN BED. CALL LIGHT KEPT WITHIN REACH. PT'S BED IN LOWEST, LOCKED POSITION WITH SRX3. WILL CONTINUE PLAN OF CARE.
[2019-10-10] MEDS: BLOOD SUGAR DIAGNOSTIC 1 EACH STRIP IN SCH (07:30)
[2019-10-10 08:00] VITALS: BP 120/69
--- NOTE | 2019-10-10 08:08 | NUR ---
REHEATER HELPER OPENING NOTES PT REFUSED BLOOD SUGAR CHECK. RN EXPLAINED RISKS AND BENEFITS. HOSPITALIST/ASSISTANT TRACK AND FIELD COACH/DT MADE AWARE WELL. PER DT, PT WILL GO HOME TODAY WITH FAMILY. Addendum: 10/10/19 at 0810 by DENNIS REINOSO RN REHEATER HELPER NOTES ONLY. NOT OPENING NOTES.
[2019-10-10 08:25] LABS: LYMPHOCYTES % (MANUAL) 1 % (16-48); MONOCYTES % (MANUAL) 6 % (0-11.0); MYELOCYTES % 2 % (0-0); NEUTROPHILS % (MANUAL) 91 (42-76)
[2019-10-10] MEDS ORDERED: CEPH-570 PO (08:44)
[2019-10-10] MEDS ORDERED: LEVO500T75 PO (08:44)
[2019-10-10] MEDS: HYDROCORTISONE SOD SUCCINATE 100 MG/2 ML VIAL IV SCH (09:10)
[2019-10-10] MEDS: MUPIROCIN OINT 2% 22 GM TUBE SCH (09:15)
--- NOTE | 2019-10-10 11:06 | NUR ---
MS DIGITAL PHOTO PRINTER NOTES PT TO GO HOME WITH HOME HEALTH, DAUGHTER/LAVERN MADE AWARE WITH THE DISCHARGE INSTRUCTIONS, PRESCRIPTION AND FOLLOW UPS FOR THE PT. PT TOLERATING RA, WITH NO SOB. PT DENIES NAY PAIN OR DISCOMFORT AT THE TIME OF DISCHARGE. PICTURE TAKEN AT [facility] [[email or web address]] PICC AND REFUSED FOR LEFT FOOT DRESSING TO BE CHANGED AND PICTURE TO BE TAKEN PER PT, NURSE FROM [facility] CHANGED IT. RN EXPLAINED UNIT PROTOCOL, INSIST TO REFUSE AND IN A HURRY TO GO HOME. RN PROVIDED WOUND TREATMENT SUPPLIES INSTEAD TO BRING HOME. HOME HEALTH ARRANGED BY ARIADNA/DREW, TO NOTIFY DAUGHTER/LAVERN WELL. PT REVIEWED AND SIGNED INVENTORY LIST AND DISCHARGE INSTRUCTIONS. ALL BELONGINGS WITH THE PT. PRESCRIPTION GIVEN TO PT. PROVIDED ID/MD/ZULLY INFO WELL. [facility] [[email or web address]] PICC REMOVED, APPLIED DRY DRESSING, WITNESSED BY ANOTHER RN/JAMES. PT ESCORTED TO LOBBY VIA WHEELCHAIR. VS STABLE AND RECORDED. PT LEFT THE UNIT AT 1105. HOSPITALIST/DT AND CHARGE NURSE MADE AWARE.
== END 2019-10-10 11:30 | disposition home health service (06) | DRG 853 ==
LOC: ER 21:21 → TELE1 22:56 → ICU 10-05 05:23 → TELE 10-06 17:07
PROVIDERS: ADMIT Nurse Practitioner Acute Care; ATTEND Nurse Practitioner Acute Care
PROC: 0QBP0ZZ Excision of Left Metatarsal, Open Approach (ICD-10-PCS; principal; 2019-10-05)
PROC: 02HV33Z Insertion of Infusion Device into Superior Vena Cava, Percutaneous Approach (ICD-10-PCS; 2019-10-05)
PROC: B548ZZA Ultrasonography of Superior Vena Cava, Guidance (ICD-10-PCS; 2019-10-05)
DX: A41.9 Sepsis, unspecified organism (principal); J15.9 Unspecified bacterial pneumonia; N17.0 Acute kidney failure with tubular necrosis; R65.21 Severe sepsis with septic shock; D68.59 Other primary thrombophilia; E87.2 Acidosis; E22.2 Syndrome of inappropriate secretion of antidiuretic hormone; J98.11 Atelectasis; D63.8 Anemia in other chronic diseases classified elsewhere; I48.91 Unspecified atrial fibrillation; R74.0 Nonspecific elevation of levels of transaminase and lactic acid dehydrogenase [LDH]; E11.621 Type 2 diabetes mellitus with foot ulcer; E11.51 Type 2 diabetes mellitus with diabetic peripheral angiopathy without gangrene; Z95.5 Presence of coronary angioplasty implant and graft; Z22.322 Carrier or suspected carrier of Methicillin resistant Staphylococcus aureus; D72.810 Lymphocytopenia; E11.40 Type 2 diabetes mellitus with diabetic neuropathy, unspecified; Z87.891 Personal history of nicotine dependence; E61.1 Iron deficiency; E78.5 Hyperlipidemia, unspecified; Z79.84 Long term (current) use of oral hypoglycemic drugs; Z79.4 Long term (current) use of insulin; Z79.899 Other long term (current) drug therapy; Z89.9 Acquired absence of limb, unspecified; I45.81 Long QT syndrome; L97.519 Non-pressure chronic ulcer of other part of right foot with unspecified severity; L97.529 Non-pressure chronic ulcer of other part of left foot with unspecified severity; I70.0 Atherosclerosis of aorta; I25.10 Atherosclerotic heart disease of native coronary artery without angina pectoris; I10 Essential (primary) hypertension; E87.5 Hyperkalemia; E86.1 Hypovolemia; T38.0X5A Adverse effect of glucocorticoids and synthetic analogues, initial encounter; Y92.9 Unspecified place or not applicable
CPT/HCPCS: 36415; 71045-TC; 80048-TC; 80053-TC; 80061-TC; 80076-TC; 80202-TC; 81000-TC; 82247-TC; 82248-TC; 82533; 82550-TC; 82570-TC; 82728-TC; 82962-TC; 83540-TC; 83605-TC; 83615-TC; 83735-TC; 83970; 84100-TC; 84155; 84155-TC; 84165; 84300-TC; 84439-TC; 84443-TC; 84484-TC; 85025-TC; 85378-TC; 85730-TC; 86140-TC; 86803; 87040-TC; 87081-TC; 87086-TC; 87186-TC; 87806; 93307-TC; A4216; A6253; A6403; C1751; G0378; J1650; J1720; J1815; J2185; J2270; J2543; J2916; J3370; J7030; J7040; J7050; J7060